=== PATIENT | female | born 1960 | race Caucasian/White ===

== ENCOUNTER 2023-01-19 11:15 | Emergency (ER) | payer MEDICARE ==
[2023-01-19] MEDS ORDERED: Amoxicillin/Potassium Clav 875 MG TAB ONE (12:01)
[2023-01-19] MEDS ORDERED: predniSONE 20 MG TAB ONE (12:01)
[2023-01-19] MEDS ORDERED: Ondansetron ODT 4 MG TAB ONE (12:01)
== END 2023-01-19 12:23 | disposition home or self-care (01) ==
LOC: MADERS 11:15
DX: J20.9 Acute bronchitis, unspecified (principal); I10 Essential (primary) hypertension; K21.9 Gastro-esophageal reflux disease without esophagitis; E78.00 Pure hypercholesterolemia, unspecified; J44.9 Chronic obstructive pulmonary disease, unspecified; M81.0 Age-related osteoporosis without current pathological fracture; F17.210 Nicotine dependence, cigarettes, uncomplicated; Z20.822 Contact with and (suspected) exposure to COVID-19; Z79.82 Long term (current) use of aspirin; Z79.899 Other long term (current) drug therapy
CPT/HCPCS: 71046; 87081; 87430; 87804; J7512; Q0162; U0003; U0005

== ENCOUNTER 2023-06-22 13:57 | Emergency (ER) | payer MEDICARE, MEDICAID ==
[2023-06-22] MEDS ORDERED: Bupivacaine PF 0.5% 30 ML VIAL ONE (15:05)
[2023-06-22] MEDS ORDERED: Penicillin V Potassium 250 MG TAB ONE (15:09)
== END 2023-06-22 15:25 | disposition home or self-care (01) ==
LOC: MADERS 13:57
DX: K04.7 Periapical abscess without sinus (principal); K21.9 Gastro-esophageal reflux disease without esophagitis; I10 Essential (primary) hypertension; M81.0 Age-related osteoporosis without current pathological fracture; E78.00 Pure hypercholesterolemia, unspecified; F17.210 Nicotine dependence, cigarettes, uncomplicated; Z79.82 Long term (current) use of aspirin; Z79.899 Other long term (current) drug therapy
CPT/HCPCS: 64400; S0020

== ENCOUNTER 2024-08-21 10:12 | Emergency (ER) | payer MEDICARE, MEDICAID | END 2024-08-21 11:40 | disposition home or self-care (01) | LOC: MADERS 10:12 | DX: J01.90 Acute sinusitis, unspecified (principal); J18.9 Pneumonia, unspecified organism; I10 Essential (primary) hypertension; E78.00 Pure hypercholesterolemia, unspecified; F17.210 Nicotine dependence, cigarettes, uncomplicated; Z79.899 Other long term (current) drug therapy; Z79.82 Long term (current) use of aspirin | CPT/HCPCS: 71046 ==

== ENCOUNTER 2024-11-09 10:17 | Outpatient (CLI) | payer MEDICARE, MEDICAID | END 2024-11-09 10:18 | disposition home or self-care (01) | LOC: MADRAD 10:17 | PROVIDERS: ATTEND Nurse Practitioner Family | DX: M54.2 Cervicalgia (principal); M47.812 Spondylosis without myelopathy or radiculopathy, cervical region | CPT/HCPCS: 72040 ==

== ENCOUNTER 2025-05-03 22:50 | Emergency (ER) | payer MEDICARE, MEDICAID ==
[2025-05-03] MEDS ORDERED: Ketorolac Tromethamine 30 MG (1 mL) VIAL ONE (23:41)
[2025-05-04] MEDS ORDERED: HYDROcodone/Acetaminophen 5/325 mg Tablet ONE (00:44)
== END 2025-05-04 01:39 | disposition home or self-care (01) ==
LOC: MADERS 22:50
DX: S22.42XA Multiple fractures of ribs, left side, initial encounter for closed fracture (principal); I10 Essential (primary) hypertension; E78.00 Pure hypercholesterolemia, unspecified; K21.9 Gastro-esophageal reflux disease without esophagitis; F17.210 Nicotine dependence, cigarettes, uncomplicated; Z79.899 Other long term (current) drug therapy; Z79.82 Long term (current) use of aspirin; W10.9XXA Fall (on) (from) unspecified stairs and steps, initial encounter
CPT/HCPCS: 96374; J1885